=== PATIENT | female | born 1955 | race Caucasian/White ===

== ENCOUNTER 2022-07-13 09:02 | Inpatient (IN) ==
[2022-07-14] MEDS: Artificial Tears SOLN 15 ML BOTTLE BOTH EYES SCH (22:51)
[2022-07-15] MEDS: *HR* Enoxaparin 40 MG/0.4 ML SYRINGE SQ SCH (06:19)
[2022-07-15 07:35] LABS: Basophils # 0.1 K/mcL (0.0-0.2); Basophils % 0.5 %; Eosinophils # 0.1 K/mcL (0.0-0.6); Hemoglobin 13.4 g/dL (11.5-15.4); Immature Granulocytes % 0.6 % (0-4); Lymphocytes # 3.7 K/mcL (0.6-4.6); Lymphocytes % 26.4 %; Mean Corpuscular HGB Conc 32.7 g/dL (31.6-35.5); Mean Corpuscular Hemoglobin 27.3 pg (28.0-33.3); Mean Corpuscular Volume 83.5 fL (83.0-100.0); Mean Platelet Volume 10.3 fL (9.4-12.4); Monocytes # 0.7 K/mcL (0.0-1.3); Monocytes % 5.1 %; Neutrophils # 9.3 K/mcL (1.6-8.9); Platelet Count 368 K/mcL (140-400); Red Blood Count 4.91 M/mcL (3.82-4.97); Red Cell Distribution Width 14.4 % (11.5-14.5); Segmented Neutrophils % 66.4 %
[2022-07-15 07:47] LABS: Potassium 3.7 mEq/L (3.5-5.1)
[2022-07-15] MEDS ORDERED: hydrALAZINE 10 MG TABLET PO PRN (08:20)
[2022-07-15] MEDS: amLODIPine 5 MG TABLET PO SCH (08:58)
[2022-07-15] MEDS: Aspirin 81 MG TAB.CHEW PO SCH (08:58)
[2022-07-15] MEDS: lisinopriL 10 MG TABLET PO SCH (14:27)
[2022-07-15 18:45] LABS: Bilirubin,Urine Negative (Negative); Blood,Urine Trace-intact (Negative); Clarity,Urine Slightly Cloudy (Clear); Color,Urine Yellow (Yellow); Glucose,Urine (UA) Normal (Normal); Ketones,Urine Negative (Negative); Leukocyte Esterase,Urine Negative (Negative); Nitrite,Urine Negative (Negative); PH,Urine 6.5 pH Units (5.0-8.0); Protein,Urine Negative (Neg-Trace); Specific Gravity,Urine 1.025 (1.010-1.025); Urobilinogen,Urine Normal (Normal)
[2022-07-15 18:53] LABS: RBC,Urine 0-3 per hpf (0-3); WBC,Urine 0-3 per hpf (0-3)
[2022-07-15 18:54] LABS: Bacteria,Urine Many per hpf (None-Few); Mucus,Urine Few per lpf (None-Few); Squamous Epithelial Cell,Urine Few per hpf (None-Few)
[2022-07-15 18:56] LABS: Amorphous Sediment,Urine Few per hpf (None-Few)
[2022-07-15] MEDS: Artificial Tears SOLN 15 ML BOTTLE BOTH EYES SCH (22:42)
[2022-07-16] MEDS: *HR* Enoxaparin 40 MG/0.4 ML SYRINGE SQ SCH (04:08)
[2022-07-16] MEDS: amLODIPine 5 MG TABLET PO SCH (07:39)
[2022-07-16] MEDS: Aspirin 81 MG TAB.CHEW PO SCH (09:29)
[2022-07-16] MEDS: Ondansetron ODT 4 MG TAB.RAPDIS SL SCH ×2 (09:30→17:44)
[2022-07-16] MEDS ORDERED: Sennosides/Docusate Sodium TABLET PO PRN (10:32)
[2022-07-16] MEDS: lisinopriL 10 MG TABLET PO SCH (12:24)
[2022-07-16] MEDS: 0.9 % Sodium Chloride 1,000 ML IVC SCH ×2 (12:50→22:56)
[2022-07-16] MEDS ORDERED: lisinopriL 10 MG TABLET PO SCH (18:00)
[2022-07-16] MEDS ORDERED: Ondansetron ODT 4 MG TAB.RAPDIS SL SCH (20:00)
[2022-07-16] MEDS: Artificial Tears SOLN 15 ML BOTTLE BOTH EYES SCH (22:57)
[2022-07-17] MEDS: Ondansetron ODT 4 MG TAB.RAPDIS SL SCH ×2 (01:42→11:47)
[2022-07-17] MEDS: *HR* Enoxaparin 40 MG/0.4 ML SYRINGE SQ SCH (04:36)
[2022-07-17 05:04] LABS: Hematocrit 38.2 % (35.3-44.9); Hemoglobin 12.4 g/dL (11.5-15.4); Mean Corpuscular HGB Conc 32.5 g/dL (31.6-35.5); Mean Corpuscular Hemoglobin 27.6 pg (28.0-33.3); Mean Corpuscular Volume 84.9 fL (83.0-100.0); Mean Platelet Volume 10.3 fL (9.4-12.4); Platelet Count 297 K/mcL (140-400); Red Cell Distribution Width 14.3 % (11.5-14.5); White Blood Count 12.9 K/mcL (4.3-11.1)
[2022-07-17 05:15] VITALS: TEMP 97.5
[2022-07-17 05:22] LABS: Albumin 3.5 g/dL (3.5-5.7); Albumin/Globulin Ratio 1.3 (1.1-2.2); Bilirubin,Total 0.4 mg/dL (0.3-1.0); Calcium 8.3 mg/dL (8.6-10.3); Globulin 2.6 g/dL (2.4-3.5); Total Protein 6.1 g/dL (6.4-8.9)
[2022-07-17 07:50] VITALS: BP 162/93; PULSE 73; RESP 16; O2SAT 95
[2022-07-17] MEDS: 0.9 % Sodium Chloride 1,000 ML IVC SCH (08:52)
[2022-07-17] MEDS ORDERED: polyethylene glycoL 3350 17 GM POWD.PACK PO SCH (09:00)
[2022-07-17] MEDS ORDERED: Pantoprazole 40 MG VIAL IVP SCH (10:30)
[2022-07-17] MEDS: Aspirin 81 MG TAB.CHEW PO SCH (11:46)
[2022-07-17] MEDS: amLODIPine 5 MG TABLET PO SCH (11:47)
== END 2022-07-17 15:27 | disposition short-term general hospital (02) | DRG 66 ==
LOC: INPGRE 07-14 18:31
PROVIDERS: ADMIT Family Medicine; ATTEND Family Medicine